=== PATIENT | male | born 1960 | race Caucasian/White ===

== ENCOUNTER 2018-02-16 17:20 | Inpatient (IN) ==
[2018-02-16] MEDS ORDERED: *HR* Heparin 5,000 UNIT/ML VIAL ONE (17:25)
[2018-02-16] MEDS ORDERED: *HR* Ticagrelor 90 MG TABLET ONE (17:25)
[2018-02-16] MEDS ORDERED: *HR* Heparin 5,000 UNIT/ML VIAL IVP PRN ×2 (17:26)
[2018-02-16] MEDS ORDERED: Aspirin 81 MG TAB.CHEW ONE (17:26)
[2018-02-16] MEDS ORDERED: *HR* Heparin 5,000 UNIT/ML VIAL IVP ONE (17:26)
[2018-02-16] MEDS ORDERED: 0.9 % Sodium Chloride 1,000 ML IVC ONE (17:26)
[2018-02-16] MEDS ORDERED: *HR* Ticagrelor 90 MG TABLET PO ONE (17:26)
[2018-02-16] MEDS ORDERED: 0.9 % Sodium Chloride 1,000 ML ONE ×2 (17:26→17:31)
[2018-02-16] MEDS ORDERED: Heparin 25,000 UNIT/500 ML D5W 25,000 UNIT/500 ML BAG IVC SCH (17:30)
[2018-02-16] MEDS ORDERED: Heparin 1,000 UNITS/500 mL 500 ML ONE ×2 (17:31→19:12)
[2018-02-16] MEDS ORDERED: ISOVUE-370 200 ML INFUS..BTL IV ONE ×2 (17:31→19:41)
[2018-02-16] MEDS ORDERED: *HR* Heparin 10,000 UNIT/10 ML VIAL ONE (17:31)
[2018-02-16] MEDS ORDERED: Nitroglycerin 1,000 MCG/10 ML VIAL IV ONE (17:31)
[2018-02-16 17:40] LABS: Basophils # 0.2 K/mcL (0.0-0.2); Basophils % 0.9 %; Eosinophils # 0.4 K/mcL (0.0-0.6); Eosinophils % 1.7 %; Hematocrit 46.3 % (37.5-50.1); Hemoglobin 15.9 g/dL (12.9-16.9); Immature Granulocytes % 4.4 % (0-4); Immature Platelets 8.4 % (1.1-6.1); Lymphocytes # 9.2 K/mcL (0.6-4.6); Lymphocytes % 43.9 %; Mean Corpuscular HGB Conc 34.3 g/dL (31.6-35.5); Mean Corpuscular Hemoglobin 31.5 pg (28.0-33.3); Mean Corpuscular Volume 91.7 fL (83.0-100.0); Mean Platelet Volume 12.1 fL (9.4-12.4); Monocytes # 0.8 K/mcL (0.0-1.3); Neutrophils # 9.4 K/mcL (1.6-8.9); Nucleated Red Blood Cells 0.1 /100 WBC (0); Platelet Count 168 K/mcL (140-400); Red Blood Count 5.05 M/mcL (4.19-5.50); Red Cell Distribution Width 13.3 % (11.5-14.5); Segmented Neutrophils % 45.1 %
--- NOTE | 2018-02-16 17:43 | Emergency Department Note ---
Disposition Clinical Impression: STEMI (ST elevation myocardial infarction) Qualifiers: Involved coronary artery: LAD coronary artery Qualified Code(s): I21.02 - ST elevation (STEMI) myocardial infarction involving left anterior descending coronary artery Disposition: Admitted As Inpatient Condition: Critical Forms: ED Satisfaction Letter Time of Disposition: 17:50 Chest Pain HPI - General Chief Complaint: ED Chest Pain Stated Complaint: unresponsive Time Seen by Provider: 02/16/18 17:26 Source: EMS Mode of arrival: EMS Limitations: no limitations Vital Signs Reviewed: Yes Nursing Notes Reviewed: Yes - History of Present Illness HPI Narrative: Patient is a 57 yo male who presents today due to being found unresponsive at roadside. 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 He had witnessed arrest while at work prior to arrival, approx 1 hour ago. He had been complaining of not feeling well all day and then was witnessed collapsing. CPR was performed by bystanders until EMS arrived. EMS states that they did CPR for a total of around 45 minutes. They had a shockable rhythm of V. fib on the monitor twice, the patient was shocked at 360 J twice. Upon the second shock, the patient had return of spontaneous circulation. No epinephrine, bicarbonate, or any other ACLS medications were given. The patient was bagged for airway until arrival to ER, no tube was placed. Upon arrival to the ER, patient was oriented to person but not place or time, he was complaining of left-sided chest pain, would follow commands of car shakeout operator strength testing but would not answer any other review of system questions such as shortness of breath, nausea, vomiting, fevers, abdominal pain; would not follow and other commands. He has no family or other persons with him. No known medical history on the patient. - Related Data Allergies Allergy/AdvReac Type Severity Reaction Status Date / Time No Known Allergies Allergy Verified 02/16/18 17:47 Limitations: ROS unobtainable due to patients medical condition Physical Exam - General Limitations: altered mental status General appearance: other (listless) - Head Head exam: atraumatic, normocephalic, normal inspection - Eye Eye exam: Present: normal appearance, PERRL, EOMI - ENT ENT exam: normal exam, normal oropharynx, mucous membranes moist - Neck Neck exam: Present: normal inspection, full ROM, trachea midline - Chest Chest inspection: Present: normal inspection, symmetric chest wall rise, other ( partial thickness skin abrasion of midline/left chest approx 8cm x5cm; presumed from CPR/defib. ) - Respiratory Respiratory exam: Present: normal lung sounds bilaterally - Cardiovascular Cardiovascular exam: Present: regular rate, normal rhythm, normal heart sounds - Abdominal Exam Abdominal exam: Present: soft, Non-Tender. Absent: tenderness, distention, guarding, rebound, rigidity - Extremities Exam Extremities exam: Present: normal inspection, full ROM. Absent: tenderness, pedal edema - Neurological Exam Neurological exam: Present: alert, other (oriented to person only but not time or place) - Expanded Neurological Exam Patient oriented to: Present: person Speech: Present: fluid speech Cranial nerves: EOM function (II, III, IV, ): Normal, facial palsy (VII): Normal Motor strength - LUE: 5/5 Motor strength - RUE: 5/5 Coma Scale Eye Opening: To Voice Coma Scale Motor Response: Obeys Commands Coma Scale Verbal Response: Confused Coma Scale Total: 13 - Psychiatric Psychiatric exam: Present: other - Skin Skin exam: Present: warm, dry Course Course Narrative: Vitals currently stable. Blood pressure systolic 120-140s. Heart rate in the 80s to 90s. Once onto the bed, patient had an EKG that showed ST elevation in leads 2, 3, aVF with reciprocal ST depression in lead 1, V1 through V5. STEMI alert called at 17:25. I talked with tungsten refiner on-call, Dr. Garcia; discussed presentation, vitals, EKG. He agreed to come in for heart catheter. We discussed giving the patient aspirin, Prilosec, heparin. He is agreeable with this plan. Bedside chest x-ray showed no widened mediastinum, bilateral upper extremity blood pressures were the same, 120s over 80s. Patient taken from room to [facility] at 17:52, stable vitals upon leaving room. Chest Pain - MDM Narrative Medical decision making narrative: Vitals currently stable. Blood pressure systolic 120-140s. Heart rate in the 80s to 90s. Once onto the bed, patient had an EKG that showed ST elevation in leads 2, 3, aVF with reciprocal ST depression in lead 1, V1 through V5. STEMI alert called at 17:25. I talked with tungsten refiner on-call, Dr. Garcia; discussed presentation, vitals, EKG. He agreed to come in for heart catheter. We discussed giving the patient aspirin, Prilosec, heparin. He is agreeable with this plan. Bedside chest x-ray showed no widened mediastinum, bilateral upper extremity blood pressures were the same, 120s over 80s. Patient taken from room to [facility] at 17:52, stable vitals upon leaving room. - Medical Records Medical records reviewed: Yes I reviewed the patient's medical records. - Lab Data Lab results reviewed: Yes I reviewed the patient's lab results. - Radiology Data Radiology results reviewed: Yes I reviewed the patient's radiology results. Chest X-Ray 02/16/18 17:28 IMPRESSION: Asymmetric right-sided opacity, greatest at the right upper lobe, suspicious for pneumonia. Asymmetric edema could be considered in the appropriate clinical setting. Follow-up to complete resolution is recommended. D/ / Adams Spivey MD / Adams Spivey MD Interpreting Provider: Adams Spivey MD - EKG Data EKG attestation: Yes I reviewed and interpreted this EKG. EKG results narrative: 02/16/2018 at 17:25. Sinus tach/possible fast A. fib. Rate was 112. QRS 110. QTC 395. Right axis deviation. ST elevation in lead 2, 3, aVF, reciprocal ST depression in lead 1, V1 through V5. INFERIOR STEMI S.B.A.R. - S.B.A.R. Situation: Demographics, MOA Background: Presenting Complaint, Relevant PMH, Meds, & Allergies Assessment: Vital Signs, Course and respsone to treatment, Exam Concerns, Pertinant Lab Results, Outstanding Labs Recommendation: Barrier(s) to disposition, Recommendation based on pending studies, treatments, or consults S.B.A.R. Report Given to: Dr. Garcia
[2018-02-16 17:50] LABS: INR 1.1; Prothrombin Time 12.1 Seconds (9.4-12.1)
[2018-02-16 17:53] LABS: Activated Partial Thrombo Time 35.2 Seconds (26.0-36.0)
[2018-02-16 17:58] LABS: BUN/Creatinine Ratio 12 (6-26); Blood Urea Nitrogen 16 mg/dL (6-20); Calcium 8.1 mg/dL (8.6-10.3); Carbon Dioxide 14 mEq/L (23-29); Chloride 107 mEq/L (98-107); Glucose 310 mg/dL (70-105); Magnesium 2.2 mg/dL (1.6-2.6); Osmolality,Calculated 301 (280-300); Potassium 3.7 mEq/L (3.5-5.1); Sodium 139 mEq/L (136-145); eGFR For African Americans > 60 (> 60); eGFR For Non-African Americans 55 (> 60)
--- NOTE | 2018-02-16 17:58 | Emergency Department Note ---
Disposition Clinical Impression: ST elevation myocardial infarction (STEMI) Qualifiers: Involved coronary artery: LAD coronary artery Qualified Code(s): I21.02 - ST elevation (STEMI) myocardial infarction involving left anterior descending coronary artery Disposition: Admitted As Inpatient Condition: Serious Forms: ED Satisfaction Letter General Adult HPI - General Chief complaint: ED Chest Pain Stated complaint: unresponsive Time Seen by Provider: 02/16/18 17:26 Source: EMS Mode of arrival: EMS Limitations: altered mental status - History of Present Illness Pain Scale: 0 - Related Data Allergies Allergy/AdvReac Type Severity Reaction Status Date / Time No Known Allergies Allergy Verified 02/16/18 17:47 Past Medical History - Past Medical History Medical history: Reports: no medical history Psychiatric history: Reports: no psych history - Social History Smoking Status: Unknown if ever smoked Physical Exam - General Limitations: altered mental status General appearance: other (listless) Course - Reevaluation(s) Reevaluation #1: Attestation note I examined this patient and my medical decision-making was reviewed with the emergency medicine resident. I agree with the documented findings, disposition and treatment plan as described except to the extent set forth below. Patient seen with emergency medicine resident Dr. DENISHA HERNANDEZ, Please see a copy of his note for details of the H&P, ED evaluation, management and disposition. I have independently evaluated the patient and confirmed appropriate portions of the history and physical exam. Briefly: 57-year-old male brought in by EMS status post witnessed cardiac arrest with V. fib responding to 1 shock patient a perfusing rhythm and was being bagged. Patient by report had a stress test in and cast her last week was supposedly okay. By the time patient arrived he was spontaneously breathing and he was conscious. EKG showed clear ST elevation in the anterior inferior leads with reciprocal changes in the lateral leads. Stimulator was called immediately I had a notify the catheter lab and my resident discussed the case with the courtroom clerk. We have provided 30 minutes critical care service this patient. Patient transported in critical condition to the catheter lab. Time: 17:54 Vital Signs Temperature 96.6 F L 02/16/18 17:35 Pulse Rate 99 02/16/18 17:35 Respiratory Rate 22 02/16/18 17:35 Blood Pressure 144/79 02/16/18 17:35 O2 Sat by Pulse Oximetry 91 02/16/18 17:35 Temperature 96.6 F L 02/16/18 17:35 Pulse Rate 99 02/16/18 17:35 Respiratory Rate 22 02/16/18 17:35 Blood Pressure 144/79 02/16/18 17:35 O2 Sat by Pulse Oximetry 91 02/16/18 17:35 Oxygen Delivery Oxygen Delivery Non Rebreather Mask Medical Decision Making - Lab Data Result diagrams: 02/16/18 17:25 Lab Results 02/16/18 02/16/18 Range/Units 17:25 17:25 WBC 20.9 H (4.3-11.1) K/mcL RBC 5.05 (4.19-5.50) M/mcL Hgb 15.9 (12.9-16.9) g/dL Hct 46.3 (37.5-50.1) % MCV 91.7 (83.0-100.0) fL MCH 31.5 (28.0-33.3) pg MCHC 34.3 (31.6-35.5) g/dL RDW 13.3 (11.5-14.5) % Plt Count 168 (140-400) K/mcL MPV 12.1 (9.4-12.4) fL Nucleated RBCs/100 WBC 0.1 H (0) /100 WBC Immature Plt Fraction 8.4 H (1.1-6.1) % PT 12.1 (9.4-12.1) Seconds INR 1.1 APTT 35.2 (26.0-36.0) Seconds
[2018-02-16] MEDS ORDERED: Tirofiban 5 MG/100 mL 5 MG/100 ML VIAL IV ONE ×2 (18:05→20:02)
[2018-02-16] MEDS ORDERED: Amiodarone Premix 360 MG/200 ML BAG IVC ONE (18:12)
[2018-02-16] MEDS ORDERED: Amiodarone Premix 150 MG/100 ML BAG IVPB ONE (18:12)
[2018-02-16 18:18] LABS: Platelet Estimate Normal (Normal); Reactive Lymphocytes Present (Not Present)
[2018-02-16] MEDS ORDERED: *HR* Atropine Sulfate 1 MG/10 ML SYRINGE ONE (20:17)
[2018-02-16] MEDS ORDERED: Tirofiban 12.5 MG/250ML 12.5 MG/250 ML BAG IVC SCH (20:30)
--- NOTE | 2018-02-16 20:30 | Cardiology History & Physical ---
Date of Encounter: 02/16/18 Time of Encounter: 20:28 Assessment and Plan (1) ST elevation myocardial infarction (STEMI) Current Visit: Yes Status: Acute The assessment and plan as outlined above was discussed with the patient and/or family members who expressed understanding and agreement. All questions were answered. ST elevation inferior AR s/p CVE x 2 and 45 mins of CPR, emergent LHC, R/B/A d/ w patient and agreed to proceed. Qualifiers: Involved coronary artery: right coronary artery Qualified Code(s): I21.11 - ST elevation (STEMI) myocardial infarction involving right coronary artery History of Present Illness Chief complaint: SCD HPI: Mr. Carpio is a 57 year old male presents with Inferior ST elevations, s/p Sudden cardiac with out of hospital resucitation, confused unablt to provide history. S/P CPR x 45 mins and CVE x 2 en route. Significant bruising to the chest wall evident Past Med Surg Social Fam HX - Past Medical History Medical history: no medical history Psychiatric history: no psych history - Social History Smoking Status: Unknown if ever smoked Medications and Allergies 3 Allergy/AdvReac Type Severity Reaction Status Date / Time No Known Allergies Allergy Verified 02/16/18 17:47 All Systems Review: The remainder of the systems were reviewed and are negative Physical Examination General: Conversant, No Apparent Distress HEENT: Atraumatic, Normocephaly, Mucus Membranes Moist Neck: No JVD, Normal carotid pulses Cardiac: Reg Rate and Rhythm, Normal S1 and S2, No Murmur Lungs: Normal Breath Sounds, No Wheeze, Rales, Rhonchi Neuro: Alert and responsive, No focal deficits noted Abdomen: Soft, Non-Tender Skin: No rashes noted on visualized skin Musculoskeletal: No Chest Wall Tenderness Extremities: No Clubbing, No Cyanosis, No Edema, Normal Pulses Results 02/16/18 17:25 02/16/18 17:25 - VTE Reasons for not Prescribing Prophylaxis: Not indicated-Anticoagulated or INR therapeutic
--- NOTE | 2018-02-16 20:52 | Invasive Diagnostic Lab Proc ---
Name: Nicolas Carpio Date of Study: 02/16/2018 Date: 1960 Ht: 72.0in Medical Record#: [id number] Age: 57 Wt: 199.96lb Gender: Male BSA: 2.13 Order #: [id number] BMI: 27.08 Physicians Procedure Physician: Emiliana Garcia MD Referring MD: Referring MD: Staff Name Position Time In RamiroAngelo louis RN Monitor 05:59 PM Jo Wright RN Virtual Recruiter 05:59 PM Jaquelin Beltre RN Virtual Recruiter 05:59 PM Annmarie Blancas RT (R) Scrub 05:59 PM Indications Indication STEMI Procedures Performed Procedure PRQ CARD REVASC IN 1 VSL L HRT ARTERY/VENTRICLE ANGIO Pre-Procedure Checklist Informed consent is complete signed and on chart. ID band is on and ID verified with patient. Pt not NPO for procedure and MD aware. The procedure was described for the patient and questions were answered. ECG is on chart. Rhythm: NSR Plan of Care Patient will tolerate the procedure without complications. Adequate level of comfort will be maintained. Hemodynamics will remain stable Patient will recover from procedure without complications. Respiratory function will be maintained. Cardiac rhythm will remain stable. Patient temperature will be maintained. Patient and/or family have verbalized understanding of the procedure. Patient Education Intravenous Access Time IV Size Location DC'd Fluid/Drip Rate Units RN 18g 1 1/4" Patent On Arrival Lt AntecubJo Martínez RN 16 Rt Antecubital Jo Wright RN Allergies No Known Allergies Vital Signs Time BP (mmHg) HR (bpm) O2 Sat. RR (bpm) LOC 06:01 PM / % 4 = Oriented but drowsy 06:01 PM / % 4 = Oriented but drowsy 06:16 PM / % 4 = Oriented but drowsy 06:31 PM / % 4 = Oriented but drowsy 06:46 PM / % 4 = Oriented but drowsy 07:01 PM / % 4 = Oriented but drowsy 07:17 PM / % 4 = Oriented but drowsy 07:32 PM / % 4 = Oriented but drowsy 07:47 PM / % 4 = Oriented but drowsy 08:02 PM / % 4 = Oriented but drowsy 08:17 PM / % 4 = Oriented but drowsy 05:58 PM 127 / 71 73 88 % 06:03 PM 118 / 74 76 92 % 06:08 PM 125 / 71 82 92 % 06:13 PM 119 / 83 103 93 % 06:15 PM 112 / 84 133 95 % 06:20 PM 126 / 79 118 95 % 06:25 PM 116 / 89 117 95 % 06:30 PM 128 / 75 104 93 % 06:35 PM 118 / 70 80 95 % 06:40 PM 116 / 82 85 93 % 06:45 PM 129 / 74 76 94 % 06:50 PM 121 / 73 78 95 % 06:55 PM 120 / 82 78 93 % 07:00 PM 116 / 79 76 94 % 07:05 PM 123 / 80 76 94 % 07:10 PM 120 / 79 76 95 % 07:15 PM 122 / 84 75 93 % 08:10 PM 124 / 72 76 92 % 08:15 PM 126 / 81 77 93 % 08:20 PM 121 / 79 77 93 % 08:25 PM 110 / 79 71 92 % 08:30 PM 118 / 82 73 92 % 08:35 PM 111 / 86 71 92 % 07:20 PM 121 / 86 76 94 % 07:25 PM 123 / 80 71 93 % 07:30 PM 120 / 83 73 92 % 07:35 PM 121 / 82 74 92 % 07:40 PM 123 / 82 75 93 % 07:45 PM 127 / 83 74 91 % 07:50 PM 125 / 86 75 92 % 07:55 PM 120 / 82 74 91 % 08:00 PM 125 / 81 72 91 % 08:05 PM 118 / 69 73 91 % Procedural Medications Time Medication Dose Units Method Given By 06:00 PM Oxygen 10 L/min Oxy Mask Jo Wright RN 06:01 PM Lidocaine 2% 10 ml Subcutaneous Emiliana Garcia MD 06:06 PM Heparin 1000 units Intravenous AdrianaJo reis RN 06:07 PM Aggrastat Bolus: 46 ml Intravenous Cloud CreekJo reis RN 06:07 PM Aggrastat 5mg/100ml 16.5 ml Intravenous [place] CreekJo reis RN 06:37 PM Oxygen 6 L/min Oxy Mask [place] CreekJo reis RN 07:15 PM Heparin 1000 units Intravenous AdrianaJo RN 07:27 PM Oxygen 3 L/min Oxy Mask AdrianaJo reis RN 08:02 PM Nitroglycerin 150 mcg Intracoronary Ale Garcia MD 08:04 PM Nitroglycerin 100 mcg Intracoronary AntonioAle pantoja MD 08:04 PM Heparin 2000 units Intravenous Jo Wright RN 08:05 PM Nitroglycerin 200 mcg Intracoronary Ale Garcia MD 08:08 PM Heparin 2000 units Intravenous Jo Wright RN ASA Classification: Emergent Procedure: ASA score is assumed Pattie Score Preprocedure Postprocedure Activity 2- Moves 4 extremities sustained head lift Activity 2- Moves 4 extremities sustained head lift Circulation 2- SBP +/= 20 points of pre-anesthetic level Circulation 2- SBP +/= 20 points of pre-anesthetic level Consciousness 1- Responds to verbal stimuli drowsy Consciousness 1- Responds to verbal stimuli drowsy O2 Saturation 2- Able to maintain O2 satruation of 92% on room air O2 Saturation 2- Able to maintain O2 satruation of 92% on room air Respiratory 2- Able to deep breathe and cough well Respiratory 2- Able to deep breathe and cough well Total Score 9 Total Score 9 Contrast Agent: Isovue Diagnostic Contrast: 398 ml Total Contrast: 398 ml Fluoro Dose: 5470 mGy Activated Clotting Time Time Seconds to Clot 06:35 PM 304 07:15 PM 224 08:04 PM 156 Procedure Log Time Note Enter By 05:55 PM CathStat 05:57 PM Vitals capture started with the following parameters, Patient=Adult, Interval=5 min, Initial Ayahbajy=755 mmHg, Deflation Rate=5 mmHg, Cuff placed on Right Arm 05:58 PM HR=73 bpm, HUQY=511/71 mmhg, SpO2=88.0 %, Comment=nsr 05:59 PM Pt arrived to vat house laborer 2 at 17:59 jcallan 05:59 PM Angelo Rubio RN Position: Monitor Time in: 17:59 [email or web address] 05:59 PM Jo Wright RN Position: Virtual Recruiter Time in: 17:59 [email or web address] 05:59 PM Jaquelin Beltre RN Position: Virtual Recruiter Time in: 17:59 jcallan 06:00 PM Annmarie Blancas (R) Position: Scrub Time in: 17:59 jcallan 06:00 PM Patient charges- Angio tray pack, Navilyst 3mm J, Pulse Oximetry and ACIST tubing and [facility] PM Hair removed from procedure site in procedure lab using clippers. Bilateral groin prepped with Chloraprep by Annmarie Blancas (R), then patient was draped. Skin intact. [facility] 06:00 PM Physician arrived 18:00 [facility] 06:00 PM Reza and godwin completed [facility] :00 PM Sign in performed according to hospital policy. [facility] PM Time: 18:00 Oxygen on at 10 L/min per Oxy Mask by Jo Wright RN [facility] 06[facility]01 PM Time: 18:00 Patient comfortable and pain free: Yes [facility] : PM Time: 18:01LOC: 4 = [facility]ed but drowsy [facility] 06: PM Clinical Presentation: STEMI or equivalent [facility] : PM Time out performed according to hospital policy [facility] :02 PM Time: 18:01 10 ml Lidocaine 2% to right groin Subcutaneous Given by Emiliana Garcia MD [facility] 06[facility]02 PM Micro-Introducer Kit utilized for sheath placement [facility] 06:03 PM Access obtained by percutaneous puncture. 6Fr 10cm Terumo Hegins sheath placed in right Femoral artery. [id number] [facility] 06:03 PM HR=76 bpm, CVJW=779/74 mmhg, SpO2=92.0 %, Comment=nsr 06:03 PM 6Fr JR 4 Cordis guide catheter was used to cannulate the PCI vessel successfully. reused? No [facility] 06:03 PM .014 [employer] [place] 190cm guide wire across target lesion- successful. reused? No [facility] 06:04 PM Inflation device was opened. [facility] 06:04 PM 2.0 mm x 12 mm Emerge Monorail balloon across target lesion- successful. reused? No jcallan 06:04 PM Recorded Pressure: Ao, HR=74, Condition=Condition 1 (Aorta) Ao 113/83/97 06:04 PM RCA angiography performed in multiple views. [facility] 06:05 PM PCI Status Emergency [facility] 06:05 PM PCI Indication: Immediate PCI for STEMI [facility] 06:06 PM Time: 18:06 Heparin 1000 units Intravenous Given by Jo Wright RN [facility] 06:07 PM Recorded Pressure: Ao, HR=80, Condition=Condition 1 (Aorta) Ao 108/82/95 06:07 PM Time: 18:07 Aggrastat Bolus: 46 ml Intravenous Given by Jo Wright RN Azul pump [email or web address] 06:08 PM Time: 18:07 Aggrastat 5mg/100ml 16.5 ml Intravenous Given by Jo Wright RN Azul pump [email or web address] 06:08 PM HR=82 bpm, HUMH=714/71 mmhg, SpO2=92.0 %, Comment=nsr 06:08 PM Lesion found in Proximal RCA. Pre Stenosis: 100 Pre IRVIN Flow: 0: No Flow/No perfusion [email or web address] 06:08 PM Right Coronary, Right Posterior Descending Arteries with Right Posterolateral and Acute Marginal branches with 100 % stenosis. If graft is supplying this area, 0 % stenosis [email or web address] 06:09 PM Balloon inflated @ 6 linette for 6 seconds [email or web address] 06:11 PM Balloon catheter removed intact. [email or web address] 06:11 PM Recorded Pressure: Ao, DZ=443, Condition=Condition 1 (Aorta) Ao 99/83/91 06:11 PM Guide wire removed intact. [email or web address] 06:12 PM .014 High-Torque Regrader 50 190cm guide wire across target lesion- successful. reused? No jcallihan 06:13 PM SS=946 bpm, HNVC=232/83 mmhg, SpO2=93.0 %, Comment=nsr 06:13 PM Recorded Pressure: Ao, HR=97, Condition=Condition 1 (Aorta) Ao 102/78/90 06:14 PM Vitals capture stopped. 06:14 PM Vitals capture started with the following parameters, Patient=Adult, Interval=5 min, Initial Owwihcld=990 mmHg, Deflation Rate=5 mmHg, Cuff placed on Right Arm 06:15 PM Re-shaping wire. [email or web address] 06:15 PM KZ=708 bpm, VVEG=387/84 mmhg, SpO2=95.0 % 06:16 PM Time: 18:01LOC: 4 = Oriented but drowsy [email or web address] 06:16 PM Time: 18:01 Patient comfortable and pain free: Yes [email or web address] 06:17 PM Coronary Dominance: right jcallihan 06:17 PM Wire removed jcallihan 06:18 PM Re-inserting BMW wire. jcallihan 06:20 PM RX=952 bpm, XGWR=730/79 mmhg, SpO2=95.0 % 06:22 PM Guide wire removed intact. [email or web address] 06:23 PM .014 Whis[place] 190cm guide wire across target lesion- successful. reused? No jcallihan 06:25 PM ND=981 bpm, OMLY=005/89 mmhg, SpO2=95.0 % 06:28 PM Guide wire removed intact. [email or web address] 06:30 PM Recorded Pressure: Ao, MT=570, Condition=Condition 1 (Aorta) Ao 106/87/96 06:30 PM RC=337 bpm, EKYA=024/75 mmhg, SpO2=93.0 %, Comment=nsr 06:31 PM Time: 18:16 Patient comfortable and pain free: Yes [email or web address] 06:31 PM Time: 18:16LOC: 4 = Oriented but drowsy [email or web address] 06:31 PM .014 BMW [place] 190cm guide wire across target lesion- successful. reused? No jcallihan 06:31 PM New BMW inserted [email or web address] 06:34 PM Recorded Pressure: Ao, HR=78, Condition=Condition 1 (Aorta) Ao 102/68/86 06:35 PM At 18:35 the ACT was 304 seconds. [email or web address] 06:35 PM HR=80 bpm, BBEF=132/70 mmhg, SpO2=95.0 %, Comment=nsr 06:35 PM Guide wire removed intact. [email or web address] 06:37 PM .014 Hi-Torque Regrader 50 190cm guide wire across target lesion- successful. reused? No jcallihan 06:37 PM Time: 18:37 Oxygen on at 6 L/min per Oxy Mask by Jo Wright RN [email or web address] 06:38 PM Recorded Pressure: Ao, HR=84, Condition=Condition 1 (Aorta) Ao 98/71/85 06:40 PM HR=85 bpm, KIYR=694/82 mmhg, SpO2=93.0 %, Comment=nsr 06:42 PM Guide wire removed intact. jcallihan 06:43 PM .014 Whis[place] 190cm guide wire across target lesion- successful. reused? No jcallihan 06:45 PM HR=76 bpm, RBBZ=752/74 mmhg, SpO2=94.0 %, Comment=nsr 06:46 PM Time: 18:31LOC: 4 = Oriented but drowsy jcallihan 06:46 PM Time: 18:31 Patient comfortable and pain free: Yes [email or web address] 06:47 PM Balloon re-inserted. [email or web address] 06:48 PM Recorded Pressure: Ao, HR=78, Condition=Condition 1 (Aorta) Ao 102/81/92 06:50 PM HR=78 bpm, DZQZ=121/73 mmhg, SpO2=95.0 % 06:50 PM Conversation between Interventionalist and CT Surgeon. [email or web address] 06:[address] Coronado aware that patient has had Brilinta and is an Acute IN. [email or web address] 06:55 PM HR=78 bpm, IEPB=042/82 mmhg, SpO2=93.0 %, Comment=nsr 06:58 PM Balloon catheter removed intact. [email or web address] 06:59 PM .014 [place] 190cm guide wire across target lesion- successful. reused? No jcallihan 07:00 PM HR=76 bpm, HYMZ=188/79 mmhg, SpO2=94.0 % 07:01 PM Time: 18:46 Patient comfortable and pain free: Yes [email or web address] 07:01 PM Time: 18:46LOC: 4 = Oriented but drowsy [email or web address] 07:05 PM HR=76 bpm, PGTI=579/80 mmhg, SpO2=94.0 %, Comment=nsr 07:09 PM Recorded Pressure: Ao, HR=80, Condition=Condition 1 (Aorta) Ao 116/81/98 07:10 PM HR=76 bpm, ENMI=364/79 mmhg, SpO2=95.0 %, Comment=nsr 07:11 PM Guide wire removed intact. [email or web address] 07:11 PM Conversation between Interventionalist and CT Surgeon. jcallihan 07:11 PM .014 ChoICE PT Floppy 300cm guide wire across target lesion- successful. reused? No [email or web address] 07:15 PM HR=75 bpm, FBJK=442/84 mmhg, SpO2=93.0 %, Comment=nsr 07:15 PM Time: 19:15 Heparin 1000 units Intravenous Given by Jo Wright RN [email or web address] 07:15 PM Recorded Pressure: Ao, HR=74, Condition=Condition 1 (Aorta) Ao 116/83/99 07:16 PM At 19:15 the ACT was 224 seconds. [email or web address] 07:16 PM Time: 19:01 Patient comfortable and pain free: Yes [email or web address] 07:17 PM Time: 19:01LOC: 4 = Oriented but drowsy jcallihan 07:18 PM 1.2 mm x 15 mm Emerge OTW balloon across target lesion- successful. reused? No jcallihan 07:20 PM HR=76 bpm, LUZC=934/86 mmhg, SpO2=94.0 %, Comment=nsr 07:21 PM Pt states that he has worsening chest pain upon breathing, rates it a 5/10 [email or web address] 07:25 PM HR=71 bpm, QZKG=864/80 mmhg, SpO2=93.0 %, Comment=nsr 07:28 PM Time: 19:27 Oxygen on at 3 L/min per Oxy Mask by Jo Wright RN jcallihan 07:30 PM HR=73 bpm, JIXD=311/83 mmhg, SpO2=92.0 %, Comment=nsr 07:31 PM Time: 19:16 Patient comfortable and pain free: Yes [email or web address] 07:32 PM Time: 19:17LOC: 4 = Oriented but drowsy jcallihan 07:35 PM HR=74 bpm, EZEI=868/82 mmhg, SpO2=92.0 %, Comment=nsr 07:35 PM Balloon catheter removed intact. [email or web address] 07:40 PM 2.0 mm x 12 mm Emerge Monorail balloon across target lesion- successful. reused? No jcallihan 07:40 PM HR=75 bpm, MWTR=826/82 mmhg, SpO2=93.0 %, Comment=nsr 07:42 PM Balloon inflated @ 6 linette for 7 seconds [email or web address] 07:42 PM Balloon inflated @ 7 linette for 5 seconds [email or web address] 07:42 PM Balloon catheter removed intact. [email or web address] 07:45 PM HR=74 bpm, ZHGJ=173/83 mmhg, SpO2=91.0 %, Comment=nsr 07:45 PM 3.5mm x 28mm Synergy drug-eluting stent across target lesion- successful Lot #[id number] [email or web address] 07:47 PM Time: 19:32LOC: 4 = Oriented but drowsy jcallihan 07:47 PM Time: 19:31 Patient comfortable and pain free: Yes [email or web address] 07:47 PM Recorded Pressure: Ao, HR=75, Condition=Condition 1 (Aorta) Ao 115/80/97 07:48 PM Stent delivery system removed intact, undeployed [email or web address] 07:48 PM Lesion found in Mid RCA. Pre Stenosis: 99 Pre IRVIN Flow: 3: Complete and Brisk Flow/Perfusion jcallihan 07:50 PM HR=75 bpm, BTHD=217/86 mmhg, SpO2=92.0 %, Comment=nsr 07:50 PM 2.5 mm x 12 mm Emerge Monorail balloon across target lesion- successful. reused? No jcallihan 07:50 PM Balloon inflated @ 7 linette for 16 seconds [email or web address] 07:51 PM Balloon catheter removed intact. jcallihan 07:52 PM Stent re-inserted. jcallihan 07:55 PM HR=74 bpm, NCKU=400/82 mmhg, SpO2=91.0 %, Comment=nsr 07:55 PM 6Fr Guidezilla advanced jcallihan 08:00 PM HR=72 bpm, BNHI=163/81 mmhg, SpO2=91.0 %, Comment=nsr 08:00 PM Stent deployed @ 11 linette for 12 seconds [email or web address] 08:00 PM Stent balloon reinflated @ 16 linette for 13 seconds [email or web address] 08:02 PM Time: 19:47LOC: 4 = Oriented but drowsy jcallihan 08:02 PM Time: 19:47 Patient comfortable and pain free: Yes [email or web address] 08:03 PM Time: 20:02 Nitroglycerin 150 mcg Intracoronary Given by Ale Garcia MD 08:03 PM Guidezilla removed [email or web address] 08:03 PM Stent delivery system removed intact. [email or web address] 08:04 PM Time: 20:04 Nitroglycerin 100 mcg Intracoronary Given by Ale Garcia MD 08:04 PM Recorded Pressure: Ao, HR=73, Condition=Condition 1 (Aorta) Ao 106/77/90 08:04 PM At 20:04 the ACT was 156 seconds. [email or web address] 08:05 PM Time: 20:04 Heparin 2000 units Intravenous Given by Jo Wright RN [email or web address] 08:05 PM Time: 20:05 Nitroglycerin 200 mcg Intracoronary Given by Ale Garcia MD 08:05 PM HR=73 bpm, ABAL=667/69 mmhg, SpO2=91.0 %, Comment=nsr 08:06 PM Guide wire removed intact. [email or web address] 08:08 PM Time: 20:08 Heparin 2000 units Intravenous Given by Jo Wright RN [email or web address] 08:10 PM Guide catheter removed intact. [email or web address] 08:10 PM 5Fr FL 4 catheter inserted over the wire [facility] [email or web address] 08:10 PM LCA angiography performed in multiple views. [email or web address] 08:10 PM HR=76 bpm, APDF=023/72 mmhg, SpO2=92.0 %, Comment=nsr 08:10 PM Catheter removed jcallihan 08:11 PM Recorded Pressure: LV, HR=78, Condition=Condition 1 (Left Ventricle) LV 112/18/19 08:11 PM Recorded Pressure: LV, HR=81, Condition=Condition 1 (Left Ventricle) LV 114/17/17 08:12 PM 5Fr Pigtail catheter inserted over the wire [facility] [email or web address] 08:12 PM Catheter selectively placed in left ventricle jcallihan 08:12 PM Recorded Pressure: LV, Ao, HR=80, Condition=Condition 1 (Left Ventricle) LV 99/29/30, (Aorta) Ao 100/77/90 08:13 PM Bolus angiogram of left Ventricle complete: 10 ml/sec for a total of 20 mls [email or web address] 08:13 PM Catheter removed [email or web address] 08:14 PM right groin shot obtained. [email or web address] 08:14 PM Procedure completed at 20:14 [facility] 08[facility]14 PM Did you address IRVIN flow and Dominance? Yes [email or web address] 08:15 PM HR=77 bpm, PJQG=240/81 mmhg, SpO2=93.0 %, Comment=nsr 08:17 PM Time: 20:02LOC: 4 = Oriented but drowsy jcallihan 08:17 PM Sign out completed: Radiation Dose 5470 mGy Fluoro Time: 62.5 Isovue 370 - 200ml contrast 398 ml given by Emiliana Garcia MD. Complications: NoneCardiac Rehab Consult needed: YesConfirmed administered medications: Yes [email or web address] 08:20 PM Time: 20:02 Patient comfortable and pain free: Yes [email or web address] 08:20 PM Isovue 370 - 200ml,3 Bottle(s) used. jcallihan 08:20 PM HR=77 bpm, GDEQ=453/79 mmhg, SpO2=93.0 %, Comment=nsr 08:25 PM HR=71 bpm, ZMFM=139/79 mmhg, SpO2=92.0 %, Comment=nsr 08:27 PM Arterial sheath pulled, Angio-seal closure device used and was Successful [id number] S/N. jcallihan 08:27 PM Estimated Blood Loss: less than 50cc jcallihan 08:27 PM Post ECG NSR jcallihan 08:27 PM Post Blood Pressure 110/79 jcallihan 08:28 PM 20:28 Post Pulses Bilateral DP & PT 2+ jcallihan 08:28 PM 20:28 Post Pulses Bilat Radial 2+ jcallihan 08:28 PM Information taught Cardiac Cath, PCI, and Angioseal jcallihan 08:28 PM Education needs Procedure, Plan of Care, and Responsibilities of Patient in Care jcallihan 08:28 PM Learning barriers :None jcallihan 08:28 PM Education Methods Verbal jcallihan 08:28 PM Education evaluation Able to repeat information jcallihan 08:29 PM Site status No bleeding/hematoma - Rt Groin as reported by Sites, Annmarie RT (R) at 20:28 jcallihan 08:29 PM Opsite applied jcallihan 08:29 PM Plavix, Effient or Brilinta given Yes [email or web address] 08:30 PM Family placed in consult room. [email or web address] 08:30 PM Complications: None jcallihan 08:30 PM Fluoro Time: 62.5 jcallihan 08:30 PM HR=73 bpm, RESL=169/82 mmhg, SpO2=92.0 %, Comment=nsr 08:30 PM Isovue 370 - 200ml contrast 398 ml given by Emiliana Garcia. [email or web address] 08:30 PM Radiation Dose 5470 mGy jcallihan 08:32 PM Report given to Imani ARIZMENDI Pt taken to 2NE Room #1. 20:32 jcallihan 08:32 PM Time: 20:17LOC: 4 = Oriented but drowsy jcallihan 08:32 PM Patient out of room: 20:32 jcallihan 08:35 PM Time: 20:20 Patient comfortable and pain free: Yes [email or web address] 08:35 PM HR=71 bpm, FZXP=067/86 mmhg, SpO2=92.0 % 08:37 PM Lesion found in 1st Diagonal. Pre Stenosis: 80 Pre IRVIN Flow: [email or web address] 08:37 PM Lesion found in Mid Circumflex. Pre Stenosis: 90 Pre IRVIN Flow: [email or web address] 08:38 PM Mid/Distal Left Anterior Descending Coronary Artery and diagonal branches with 80% stenosis. If graft is supplying this area, 0 % stenosis jcallihan 08:38 PM Circumflex, Obtuse Marginal, Left Posterior Descending, and Left Posterolateral Coronary Arteries with 90 % stenosis. If graft is supplying this area, 0 % stenosis [email or web address] Complications Complication None None Hemodynamics Pressures Site Systolic/A Wave Diastolic/V Wave Mean AO 113 83 97 AO 108 82 95 AO 99 83 91 AO 102 78 90 AO 106 87 96 AO 102 68 86 AO 98 71 85 AO 102 81 92 AO 116 81 98 AO 116 83 99 AO 115 80 97 AO 106 77 90 LV 112 18 19 LV 114 17 17 LV 99 29 30 AO 100 77 90 Post Procedure Information Blood Pressure: 110/79 mmHg Rhythm: NSR Post procedural instructions were given Closure Device Time Device Success/Fail 02/16/2018 8:15:00 PM Angio-Seal VIP Successful Site Checks Time Location Status Staff Sheath In? Note 08:28 PM Rt Groin No bleeding/hematoma Sites, Annmarie RT (R) Pulses Time Site Pre-Procedure Post-Procedure Note 8:28:00 PM Bilateral DP & PT 2+ 8:28:00 PM Bilat Radial 2+ Updated by Angelo Rubio RN on 02/16/2018 8:46:46 PM electronically signed on 02/16/2018 8:47:20 PM with status of Final
[2018-02-16] MEDS: *HR* Ticagrelor 90 MG TABLET PO SCH (22:41)
[2018-02-17 03:38] LABS: Basophils % 0.2 %; Hematocrit 42.7 % (37.5-50.1); Hemoglobin 14.9 g/dL (12.9-16.9); Immature Granulocytes % 0.3 % (0-4); Lymphocytes # 1.3 K/mcL (0.6-4.6); Lymphocytes % 8.8 %; Mean Corpuscular HGB Conc 34.9 g/dL (31.6-35.5); Mean Corpuscular Hemoglobin 31.1 pg (28.0-33.3); Mean Corpuscular Volume 89.1 fL (83.0-100.0); Mean Platelet Volume 11.5 fL (9.4-12.4); Neutrophils # 12.1 K/mcL (1.6-8.9); Platelet Count 144 K/mcL (140-400); Red Blood Count 4.79 M/mcL (4.19-5.50); Red Cell Distribution Width 13.6 % (11.5-14.5); Segmented Neutrophils % 83.7 %
[2018-02-17 03:57] LABS: BUN/Creatinine Ratio 16 (6-26); Blood Urea Nitrogen 15 mg/dL (6-20); Calcium 8.7 mg/dL (8.6-10.3); Carbon Dioxide 24 mEq/L (23-29); Chloride 109 mEq/L (98-107); Glucose 126 mg/dL (70-105); Osmolality,Calculated 292 (280-300); Potassium 4.2 mEq/L (3.5-5.1); Sodium 140 mEq/L (136-145); eGFR For African Americans > 60 (> 60); eGFR For Non-African Americans > 60 (> 60)
[2018-02-17] MEDS ORDERED: Aspirin 81 MG TAB.CHEW PO SCH (09:00)
[2018-02-17] MEDS: *HR* Ticagrelor 90 MG TABLET PO SCH ×2 (09:03→20:28)
[2018-02-17] MEDS ORDERED: Acetaminophen 325 MG TABLET PO PRN (10:27)
[2018-02-17] MEDS ORDERED: Metoprolol XL (24 HR) Succ 25 MG TAB.ER.24H PO SCH (10:45)
--- NOTE | 2018-02-17 11:18 | Cardiology Progress Note ---
Date of Encounter: 02/17/18 Time of Encounter: 11:14 Assessment and Plan (1) ST elevation myocardial infarction (STEMI) Current Visit: Yes Status: Acute Presented as inferior STEMI, received 45 minutes of CPR prior to arrival, underwent emergent LHC with MARTÍN to mRCA and PTCA to pRCA. Mild confusion noted, likely secondary to cardiac arrest. Reports chest soreness, reproducible on palpation likely secondary to compressions during CPR. DAPT (ASA and Brilinta) uninterrupted x 1 year. BB and Statin started. TTE pending. Right femoral access site healing well. No bleeding, hematoma or ecchymosis noted. Transfer to regular floor today. Labs and vitals stable. Multiple runs NSVT on tele, longest 18 beats, BB started. Qualifiers: Involved coronary artery: right coronary artery Qualified Code(s): I21.11 - ST elevation (STEMI) myocardial infarction involving right coronary artery (2) NSVT (nonsustained ventricular tachycardia) Current Visit: Yes Status: Acute Multiple runs of NSVT on tele, longest 18 beats. BB started. K and Mag stable. Continue to monitor tele. (3) Confusion Current Visit: Yes Status: Acute Confusion noted, likely secondary to cardiac arrest. Will continue to monitor. Discussion w patient/family: The assessment and plan as outlined above was discussed with the patient and/or family members who expressed understanding and agreement. All questions were answered. Thank you for involving us in the care of your patient. Please call with any questions. I will discuss all the above with Dr. Rudolph and make changes as necessary. Subjective Principal diagnosis: STEMI Interval history: S/P inferior STEMI and s/p Sudden cardiac with out of hospital resuscitation CPR x 45 mins prior to arrival. Emergent LHC yesterday MARTÍN to mRCA and PTCA to pRCA, final report pending. Pt still seems confused today. Report chest soreness s/p compressions. Objective Vital Signs, Last 4 Hours Temp Pulse Resp BP Pulse Ox 02/17/18 08:30 70 19 109/75 94 02/17/18 07:40 98.2 F 02/17/18 07:30 75 19 116/66 95 Vital Signs Temp Pulse Resp BP Pulse Ox 02/17/18 08:30 70 19 109/75 94 02/17/18 07:40 98.2 F 02/17/18 07:30 75 19 116/66 95 05//18 06:00 71 18 112/76 96 02/17/18 05:00 97.9 F 73 18 119/75 96 02/17/18 04:00 71 14 119/86 96 02/17/18 03:00 76 14 113/74 97 02/17/18 02:00 74 16 101/55 95 02/17/18 00:55 97 F L 78 12 122/83 95 02/17/18 00:15 97 F L 02/16/18 23:12 73 18 113/86 98 02/16/18 21:45 75 20 113/82 96 02/16/18 21:30 71 16 115/86 96 02/16/18 21:20 72 02/16/18 21:15 72 20 110/76 97 02/16/18 21:00 74 20 115/78 97 02/16/18 20:55 98.0 F 73 20 118/81 95 02/16/18 18:13 84 20 120/78 93 02/16/18 17:42 77 18 123/94 92 02/16/18 17:35 96.6 F L 99 22 144/79 91 02/16/18 17:33 93 20 122/91 91 02/16/18 17:22 99 18 144/79 91 Intake and Output 02/16/18 02/17/18 02/17/18 23:59 07:59 15:59 Intake Total 661 / 661 Output Total 850 / 850 Balance -189 / -189 Intake: Oral 120 / 120 Other 541 / 541 Output: Urine 850 / 850 Other: Stool Size Copious Stool Consistency soft formed Stool Characteristics Normal for Patient Stool Color Brown # Bowel Movements 1 Weight 90.718 kg 83.4 kg Blood Glucose* 151 Patient Weight 02/17/18 23:59 Weight 83.4 kg General: Conversant, No Apparent Distress HEENT: Atraumatic Neck: No JVD, Normal carotid pulses Cardiac: Reg Rate and Rhythm, Normal S1 and S2, No Murmur Lungs: Normal Breath Sounds, No Wheeze, Rales, Rhonchi Neuro: Alert and responsive, No focal deficits noted Abdomen: Soft, Non-Tender Skin: Other (right femoral access site healing well. No active bleeding. No hematoma or ecchymosis noted.) Musculoskeletal: Other (chest wall tenderness s/p compressions) Extremities: No Clubbing, No Cyanosis, No Edema, Normal Pulses Results 02/17/18 02:59 02/17/18 02:59 Lab Results 02/17/18 02/17/18 02:59 02:59 WBC 14.5 H Hgb 14.9 Hct 42.7 Plt Count 144 Sodium 140 Potassium 4.2 Chloride 109 H Carbon Dioxide 24 BUN 15 Creatinine 0.95 Glucose 126 H Calcium 8.7 - Imaging and Cardiology Echo: pending Cardiac cath: report reviewed - EKG Interpretation EKG results cardiology: personally reviewed, other (24 hr tele AVG HR 73, multiple episodes of NSVT noted, longest run 18 beats) - VTE Reasons for not Prescribing Prophylaxis: Not indicated-Anticoagulated or INR therapeutic Consult Discharge Plan - Plan Referrals: NONE,PCP [Primary Care Provider] -
--- NOTE | 2018-02-17 16:15 | Electrocardiograph Report ---
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
--- NOTE | 2018-02-17 16:21 | Electrocardiograph Report ---
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
[2018-02-17] MEDS ORDERED: *HR* Heparin 5,000 UNIT/ML VIAL SQ SCH (18:00)
[2018-02-17] MEDS: *HR* Heparin 5,000 UNIT/ML VIAL SQ SCH (19:02)
[2018-02-18] MEDS: *HR* Heparin 5,000 UNIT/ML VIAL SQ SCH ×2 (06:08→17:31)
[2018-02-18] MEDS: Metoprolol XL (24 HR) Succ 25 MG TAB.ER.24H PO SCH (09:14)
[2018-02-18] MEDS: Aspirin 81 MG TAB.CHEW PO SCH (09:15)
[2018-02-18] MEDS: *HR* Ticagrelor 90 MG TABLET PO SCH ×2 (09:15→20:47)
[2018-02-18] MEDS: Acetaminophen 325 MG TABLET PO PRN (09:19)
--- NOTE | 2018-02-18 11:03 | Cardiology Progress Note ---
Date of Encounter: 02/18/18 Time of Encounter: 10:59 Assessment and Plan (1) ST elevation myocardial infarction (STEMI) Current Visit: Yes Status: Acute Presented as inferior STEMI, received 45 minutes of CPR prior to arrival, underwent emergent LHC with MARTÍN to mRCA and PTCA to pRCA. Mild confusion noted, likely secondary to cardiac arrest, improved today. Reports chest soreness, reproducible on palpation likely secondary to compressions during CPR. DAPT (ASA and Brilinta) uninterrupted x 1 year. BB and Statin started. TTE resulted--LVEF 40-45%. Global and regional LV systolic dysfunction with hypokinesis of the basal-mid inferior wall. Indeterminate diastolic function. Normal right ventricular structure and function. Mild mitral regurgitation. No pulmonary hypertension. Start low dose ACEi. Right femoral access site healing well. No bleeding, hematoma or ecchymosis noted. If pt remains stable overnight, tentative d/c home tomorrow. Qualifiers: Involved coronary artery: right coronary artery Qualified Code(s): I21.11 - ST elevation (STEMI) myocardial infarction involving right coronary artery (2) NSVT (nonsustained ventricular tachycardia) Current Visit: Yes Status: Acute Now resolved. No recurrence since adding low dose BB. Continue to monitor. (3) Confusion Current Visit: Yes Status: Acute Confusion noted, likely secondary to cardiac arrest. Has improved. Will continue to monitor. Discussion w patient/family: The assessment and plan as outlined above was discussed with the patient and/or family members who expressed understanding and agreement. All questions were answered. Thank you for involving us in the care of your patient. Please call with any questions. I will discuss all the above with Dr. Rudolph and make changes as necessary. Subjective Principal diagnosis: STEMI Interval history: S/P inferior STEMI and s/p Sudden cardiac with out of hospital resuscitation CPR x 45 mins prior to arrival. Emergent LHC 02/16/18 MARTÍN to mRCA and PTCA to pRCA. Confusion has improved. Reports chest soreness s/p compressions. TTE resulted--LVEF 40-45%. Global and regional LV systolic dysfunction with hypokinesis of the basal-mid inferior wall. Indeterminate diastolic function. Normal right ventricular structure and function. Mild mitral regurgitation. No pulmonary hypertension. Objective Vital Signs, Last 4 Hours Temp Pulse Resp BP Pulse Ox 05/02/18 09:55 98.4 F 76 17 132/83 96 02/18/18 09:00 76 20 125/78 02/18/18 08:00 77 12 127/91 02/18/18 07:00 98.1 F 67 14 126/87 95 Vital Signs Temp Pulse Resp BP Pulse Ox 02/18/18 09:55 98.4 F 76 17 132/83 96 02/18/18 09:00 76 20 125/78 02/18/18 08:00 77 12 127/91 02/18/18 07:00 98.1 F 67 14 126/87 95 02/18/18 06:00 72 18 118/75 92 02/18/18 05:00 73 18 125/86 94 02/18/18 04:18 72 02/18/18 04:00 75 17 108/63 92 02/18/18 03:41 98.4 F 02/18/18 03:00 73 18 116/76 93 02/18/18 02:00 70 14 107/71 92 02/18/18 01:00 81 14 128/80 92 02/18/18 00:42 76 02/18/18 00:10 98.4 F 02/18/18 00:00 72 13 122/80 92 02/17/18 23:00 75 11 120/79 92 02/17/18 22:00 70 12 115/80 97 02/17/18 21:00 72 20 123/76 96 02/17/18 20:00 98.1 F 74 21 116/104 96 02/17/18 19:57 71 02/17/18 19:00 72 21 114/76 95 02/17/18 18:30 72 20 109/70 95 02/17/18 17:27 73 19 125/80 95 02/17/18 16:30 67 19 104/70 96 02/17/18 15:30 66 19 109/67 96 02/17/18 14:30 69 20 110/71 96 02/17/18 13:30 75 19 115/75 95 02/17/18 12:30 78 18 118/76 95 02/17/18 11:50 98.7 F Intake and Output 02/17/18 02/18/18 02/18/18 23:59 07:59 15:59 Intake Total 720 / 720 240 / 240 Output Total 675 / 675 325 / 325 Balance 45 / 45 -325 / -325 240 / 240 Intake: Oral 360 / 360 240 / 240 Tube Feeding 360 / 360 Output: Urine 675 / 675 325 / 325 Other: Meal Dinner Breakfast Percent of Meal Consumed 75% 90% Weight 84.6 kg 80.2 kg Patient Weight 02/18/18 23:59 Weight 80.2 kg General: Conversant, No Apparent Distress HEENT: Atraumatic, Normocephaly, Mucus Membranes Moist Neck: No JVD, Normal carotid pulses Cardiac: Reg Rate and Rhythm, Normal S1 and S2, No Murmur Lungs: Normal Breath Sounds, No Wheeze, Rales, Rhonchi Neuro: Alert and responsive, No focal deficits noted Abdomen: Soft, Non-Tender Skin: No rashes noted on visualized skin Musculoskeletal: No Chest Wall Tenderness Extremities: No Clubbing, No Cyanosis, No Edema, Normal Pulses Results 02/17/18 02:59 02/17/18 02:59 Impressions Echocardiogram 02/17/18 20:24 Impressions: LVEF 40-45%. Global and regional LV systolic dysfunction with hypokinesis of the basal-mid inferior wall. Indeterminate diastolic function. Normal right ventricular structure and function. Mild mitral regurgitation. No pulmonary hypertension. Left Ventricular Wall Motion: Rest Echo Findings The apex, apical inferior, mid inferior, basal inferior, apical anterior, mid anterior, basal anterior, apical septal, mid inferior septal, basal inferior septal, apical lateral, mid anterior lateral, basal anterior lateral, mid anterior septal, mid inferior lateral, basal anterior septal and basal inferior lateral jackson were hypokinetic. Findings: Study Quality * Technically adequate exam. ECG Findings * Normal sinus rhythm. Left Ventricle * Indeterminate diastolic function. * Normal LV chamber size and wall thickness. * LVEF 40-45%. Right Ventricle * Normal right ventricular structure and function. Left Atrium * Normal left atrial size. Right Atrium * Normal right atrial size. Mitral Valve * Normal mitral valve structure. * No mitral stenosis. * Mild mitral regurgitation. Aortic Valve * No aortic regurgitation. * Aortic valve not well visualized. * No aortic stenosis. Tricuspid Valve * Tricuspid valve not well visualized. * Trace tricuspid regurgitation. * Estimated RA pressure is 3 mmHg. Pulmonic Valve * Pulmonic valve is not well visualized. * No pulmonic stenosis. * No pulmonic regurgitation. Pulmonary Artery * Pulmonary artery not well visualized. Aorta * Normally sized aortic root. Pericardium * There is no pericardial effusion present. Interatrial Septum * No evidence of PFO by color Doppler. IVC * Normal IVC dimensions and inspiratory collapse. Active Medications Acetaminophen (Tylenol) 650 mg PO Q4HR PRN PRN Reason: Analgesia Stop: 08/19/18 10:28 Last Admin: 02/18/18 09:19 Dose: 650 mg Lipase/Protease/Amylase (Creon Dr 6,000 Units Capsule) 12 each PO QPM JESUS Stop: 08/19/18 18:01 Aspirin (Aspirin) 81 mg PO DAILY JESUS Stop: 08/19/18 09:01 Last Admin: 02/18/18 09:15 Dose: 81 mg Atorvastatin Calcium (Lipitor) 40 mg PO HS JESUS Stop: 08/19/18 21:01 Last Admin: 02/17/18 20:28 Dose: 40 mg Heparin Sodium (Porcine) (Heparin) 5,000 unit SQ Q12HCO JESUS Stop: 08/19/18 18:01 Last Admin: 02/18/18 06:08 Dose: 5,000 unit Metoprolol Succinate (Toprol Xl) 12.5 mg PO DAILY JESUS Stop: 08/19/18 10:46 Last Admin: 02/18/18 09:14 Dose: 12.5 mg Ticagrelor (Brilinta) 90 mg PO BID JESUS Stop: 08/18/18 21:01 Last Admin: 02/18/18 09:15 Dose: 90 mg - Imaging and Cardiology Echo: report reviewed Cardiac cath: report reviewed - EKG Interpretation EKG results cardiology: other (12 hr tele AVG HR 72, SR, no NSVT noted overnight ) - VTE Reasons for not Prescribing Prophylaxis: Not indicated-Anticoagulated or INR therapeutic Consult Discharge Plan - Plan Referrals: Rudy Huerta [Other] - 03/02/18 2:30 pm (This is new location)
[2018-02-18 12:06] LABS: Basophils # 0.1 K/mcL (0.0-0.2); Basophils % 0.6 %; Eosinophils # 0.2 K/mcL (0.0-0.6); Eosinophils % 1.9 %; Hematocrit 43.8 % (37.5-50.1); Hemoglobin 15.3 g/dL (12.9-16.9); Immature Granulocytes % 0.3 % (0-4); Lymphocytes # 3.8 K/mcL (0.6-4.6); Lymphocytes % 33.9 %; Mean Corpuscular HGB Conc 34.9 g/dL (31.6-35.5); Mean Corpuscular Hemoglobin 31.1 pg (28.0-33.3); Mean Platelet Volume 11.4 fL (9.4-12.4); Monocytes # 1.2 K/mcL (0.0-1.3); Monocytes % 10.5 %; Neutrophils # 5.9 K/mcL (1.6-8.9); Platelet Count 128 K/mcL (140-400); Red Blood Count 4.92 M/mcL (4.19-5.50); Red Cell Distribution Width 13.6 % (11.5-14.5); Segmented Neutrophils % 52.8 %
[2018-02-18 12:53] LABS: BUN/Creatinine Ratio 18 (6-26); Blood Urea Nitrogen 15 mg/dL (6-20); Calcium 9.3 mg/dL (8.6-10.3); Carbon Dioxide 22 mEq/L (23-29); Chloride 108 mEq/L (98-107); Glucose 92 mg/dL (70-105); Osmolality,Calculated 286 (280-300); Potassium 3.9 mEq/L (3.5-5.1); Sodium 138 mEq/L (136-145); eGFR For African Americans > 60 (> 60); eGFR For Non-African Americans > 60 (> 60)
[2018-02-19 05:03] LABS: Basophils # 0.1 K/mcL (0.0-0.2); Basophils % 0.9 %; Eosinophils # 0.3 K/mcL (0.0-0.6); Eosinophils % 3.3 %; Hematocrit 42.1 % (37.5-50.1); Hemoglobin 14.8 g/dL (12.9-16.9); Immature Granulocytes % 0.4 % (0-4); Lymphocytes # 3.5 K/mcL (0.6-4.6); Lymphocytes % 35.2 %; Mean Corpuscular HGB Conc 35.2 g/dL (31.6-35.5); Mean Corpuscular Hemoglobin 30.8 pg (28.0-33.3); Mean Corpuscular Volume 87.5 fL (83.0-100.0); Mean Platelet Volume 11.5 fL (9.4-12.4); Monocytes % 9.5 %; Platelet Count 131 K/mcL (140-400); Red Blood Count 4.81 M/mcL (4.19-5.50); Red Cell Distribution Width 13.4 % (11.5-14.5); Segmented Neutrophils % 50.7 %
[2018-02-19 05:29] LABS: BUN/Creatinine Ratio 15 (6-26); Blood Urea Nitrogen 12 mg/dL (6-20); Calcium 9.1 mg/dL (8.6-10.3); Carbon Dioxide 20 mEq/L (23-29); Chloride 109 mEq/L (98-107); Glucose 99 mg/dL (70-105); Osmolality,Calculated 284 (280-300); Potassium 3.9 mEq/L (3.5-5.1); Sodium 137 mEq/L (136-145); eGFR For African Americans > 60 (> 60); eGFR For Non-African Americans > 60 (> 60)
[2018-02-19] MEDS: *HR* Heparin 5,000 UNIT/ML VIAL SQ SCH ×2 (06:10→18:10)
[2018-02-19] MEDS: Metoprolol XL (24 HR) Succ 25 MG TAB.ER.24H PO SCH (07:45)
[2018-02-19] MEDS: Aspirin 81 MG TAB.CHEW PO SCH (07:45)
[2018-02-19] MEDS: *HR* Ticagrelor 90 MG TABLET PO SCH ×2 (07:46→21:21)
[2018-02-19] MEDS: Acetaminophen 325 MG TABLET PO PRN ×2 (07:46→19:40)
[2018-02-19] MEDS ORDERED: Metoprolol XL (24 HR) Succ 25 MG TAB.ER.24H PO ONE (08:52)
--- NOTE | 2018-02-19 10:43 | Cardiology Progress Note ---
Date of Encounter: 02/19/18 Time of Encounter: 10:40 Assessment and Plan (1) ST elevation myocardial infarction (STEMI) Current Visit: Yes Status: Acute Presented as inferior STEMI, received 45 minutes of CPR prior to arrival, underwent emergent LHC with MARTÍN to mRCA and PTCA to pRCA. Burn area noted on chest from CPR/defibrillation. Order Silvadene. Reports chest soreness, reproducible on palpation likely secondary to compressions during CPR. DAPT (ASA and Brilinta) uninterrupted x 1 year. Continue BB, Statin, ACEi. TTE resulted--LVEF 40-45%. Global and regional LV systolic dysfunction with hypokinesis of the basal-mid inferior wall. Mild MR. Pt reports hemoptysis--will order CXR. Reports a sensation in his chest last night, not pain, but described as similar sensation prior to his arrest. No events or arrhythmias no tele. Reviewed [facility] report. There is a 80% stenosis in the proximal 1st Diagonal and a 90% stenosis in the Mid Circumflex not intervented on. Will review with interventionalist to see if these lesions need intervened on. Keep another night for further monitoring given new complaints. Qualifiers: Involved coronary artery: right coronary artery Qualified Code(s): I21.11 - ST elevation (STEMI) myocardial infarction involving right coronary artery (2) NSVT (nonsustained ventricular tachycardia) Current Visit: Yes Status: Acute Now resolved. No recurrence since adding low dose BB. Continue to monitor. (3) Confusion Current Visit: Yes Status: Acute Confusion noted, likely secondary to cardiac arrest. Has improved. Will continue to monitor. (4) Hemoptysis Current Visit: Yes Status: Acute Reports cough with hemoptysis, new. Order STAT CXR. On DAPT (ASA and Brilinta). H&H are stable. Lungs clear on exam. (5) Ischemic cardiomyopathy Current Visit: Yes Status: Acute EF 40-45% with global and regional wall motion abnormalities, s/p inferior STEMI. Continue BB and ACEi. Appears euvolemic on exam. Discussed 2L fluid restriction, Na restriction, daily weights. Discussion w patient/family: The assessment and plan as outlined above was discussed with the patient and/or family members who expressed understanding and agreement. All questions were answered. Thank you for involving us in the care of your patient. Please call with any questions. I will discuss all the above with Dr. House and make changes as necessary. Subjective Principal diagnosis: STEMI Interval history: S/P inferior STEMI and s/p Sudden cardiac with out of hospital resuscitation CPR x 45 mins prior to arrival. Emergent LHC 02/16/18 MARTÍN to mRCA and PTCA to pRCA. Confusion has improved. Reports chest soreness s/p compressions. This AM pt reports cough and hemoptysis. Reports sensation in his chest last night similar to prior his cardiac arrest. Objective Vital Signs, Last 4 Hours Temp Pulse Resp BP Pulse Ox 02/19/18 07:47 98.0 F 75 20 115/70 91 Vital Signs Temp Pulse Resp BP Pulse Ox 02/19/18 07:47 98.0 F 75 20 115/70 91 02/19/18 03:58 98.3 F 68 18 120/71 94 02/18/18 22:56 98.6 F 67 20 119/76 94 02/18/18 19:24 98.4 F 73 20 126/81 95 02/18/18 11:45 98.1 F 69 20 126/90 96 Intake and Output 02/18/18 02/19/18 02/19/18 23:59 07:59 15:59 Intake Total 120 / 120 480 / 480 Output Total 650 / 650 950 / 950 Balance -530 / -530 -950 / -950 480 / 480 Intake: Oral 120 / 120 480 / 480 Output: Urine 650 / 650 950 / 950 Other: Meal Dinner Breakfast Percent of Meal Consumed 20% 100% Weight 82.4 kg Patient Weight 02/19/18 23:59 Weight 82.4 kg General: Conversant, No Apparent Distress HEENT: Atraumatic, Normocephaly, Mucus Membranes Moist Neck: No JVD, Normal carotid pulses Cardiac: Reg Rate and Rhythm, Normal S1 and S2, No Murmur Lungs: Normal Breath Sounds, No Wheeze, Rales, Rhonchi Neuro: Alert and responsive, No focal deficits noted Abdomen: Soft, Non-Tender Skin: No rashes noted on visualized skin Musculoskeletal: Other (chest wall tenderness) Extremities: No Clubbing, No Cyanosis, No Edema, Normal Pulses Results 02/19/18 04:51 02/19/18 04:51 Lab Results 02/18/18 02/18/18 02/19/18 11:55 11:55 04:51 WBC 11.1 10.0 Hgb 15.3 14.8 Hct 43.8 42.1 Plt Count 128 L 131 L Sodium 138 Potassium 3.9 Chloride 108 H Carbon Dioxide 22 L BUN 15 Creatinine 0.85 Glucose 92 Calcium 9.3 02/19/18 04:51 WBC Hgb Hct Plt Count Sodium 137 Potassium 3.9 Chloride 109 H Carbon Dioxide 20 L BUN 12 Creatinine 0.79 Glucose 99 Calcium 9.1 Short CBC 02/19/18 02/18/18 Range/Units 04:51 11:55 WBC 10.0 11.1 (4.3-11.1) K/mcL Hgb 14.8 15.3 (12.9-16.9) g/dL Hct 42.1 43.8 (37.5-50.1) % Plt Count 131 L 128 L (140-400) K/mcL Neutrophils # 5.0 5.9 (1.6-8.9) K/mcL BMP 02/19/18 02/18/18 Range/Units 04:51 11:55 Sodium 137 138 (136-145) mEq/L Potassium 3.9 3.9 (3.5-5.1) mEq/L Chloride 109 H 108 H (98-107) mEq/L Carbon Dioxide 20 L 22 L (23-29) mEq/L BUN 12 15 (6-20) mg/dL Creatinine 0.79 0.85 (0.70-1.30) mg/dL Glucose 99 92 (70-105) mg/dL Calcium 9.1 9.3 (8.6-10.3) mg/dL Active Medications Acetaminophen (Tylenol) 650 mg PO Q4HR PRN PRN Reason: Analgesia Stop: 08/19/18 10:28 Last Admin: 02/19/18 07:46 Dose: 650 mg Lipase/Protease/Amylase (Creon Dr 6,000 Units Capsule) 12 each PO QPM JESUS Stop: 08/19/18 18:01 Aspirin (Aspirin) 81 mg PO DAILY JESUS Stop: 08/19/18 09:01 Last Admin: 02/19/18 07:45 Dose: 81 mg Atorvastatin Calcium (Lipitor) 40 mg PO HS JESUS Stop: 08/19/18 21:01 Last Admin: 02/18/18 20:47 Dose: 40 mg Heparin Sodium (Porcine) (Heparin) 5,000 unit SQ Q12HCO JESUS Stop: 08/19/18 18:01 Last Admin: 02/19/18 06:10 Dose: 5,000 unit Lisinopril (Zestril) 2.5 mg PO DAILY [facility] PRN Reason: Protocol Stop: 08/20/18 11:16 Last Admin: 02/19/18 07:46 Dose: 2.5 mg Metoprolol Succinate (Toprol Xl) 25 mg PO DAILY [facility] Stop: 08/22/18 09:01 Ticagrelor (Brilinta) 90 mg PO BID [facility] Stop: 08/18/18 21:01 Last Admin: 02/19/18 07:46 Dose: 90 mg - Imaging and Cardiology Echo: report reviewed Cardiac cath: report reviewed - EKG Interpretation EKG results cardiology: other (12 hr tele AVG HR 69, no significant pauses or arrhythmias noted.) - VTE Reasons for not Prescribing Prophylaxis: Not indicated-Anticoagulated or INR therapeutic Consult Discharge Plan - Plan Referrals: Rudy Huerta [Other] - 03/02/18 2:30 pm (This is new location)
[2018-02-19] MEDS: Silver Sulfadiazine 50 GM TUBE TP SCH (14:50)
[2018-02-20] MEDS: Acetaminophen 325 MG TABLET PO PRN (03:47)
[2018-02-20] MEDS: *HR* Heparin 5,000 UNIT/ML VIAL SQ SCH (05:35)
[2018-02-20] MEDS: *HR* Ticagrelor 90 MG TABLET PO SCH (07:51)
[2018-02-20] MEDS: Silver Sulfadiazine 50 GM TUBE TP SCH (07:52)
[2018-02-20] MEDS: Aspirin 81 MG TAB.CHEW PO SCH (07:52)
[2018-02-20 08:26] LABS: Basophils # 0.1 K/mcL (0.0-0.2); Eosinophils # 0.3 K/mcL (0.0-0.6); Eosinophils % 3.9 %; Hemoglobin 15.2 g/dL (12.9-16.9); Immature Granulocytes % 0.7 % (0-4); Lymphocytes # 2.8 K/mcL (0.6-4.6); Lymphocytes % 34.3 %; Mean Corpuscular HGB Conc 35.3 g/dL (31.6-35.5); Mean Corpuscular Volume 87.8 fL (83.0-100.0); Mean Platelet Volume 11.5 fL (9.4-12.4); Monocytes # 0.7 K/mcL (0.0-1.3); Monocytes % 8.7 %; Neutrophils # 4.2 K/mcL (1.6-8.9); Platelet Count 156 K/mcL (140-400); Red Cell Distribution Width 13.2 % (11.5-14.5); Segmented Neutrophils % 51.4 %
[2018-02-20 08:52] LABS: BUN/Creatinine Ratio 16 (6-26); Blood Urea Nitrogen 13 mg/dL (6-20); Calcium 9.4 mg/dL (8.6-10.3); Carbon Dioxide 22 mEq/L (23-29); Chloride 107 mEq/L (98-107); Glucose 95 mg/dL (70-105); Osmolality,Calculated 282 (280-300); Potassium 3.8 mEq/L (3.5-5.1); Sodium 136 mEq/L (136-145); eGFR For African Americans > 60 (> 60); eGFR For Non-African Americans > 60 (> 60)
[2018-02-20] MEDS ORDERED: Metoprolol XL (24 HR) Succ 25 MG TAB.ER.24H PO SCH (09:00)
[2018-02-20] MEDS ORDERED: Isosorbide MONOnitrate (24 HR) 30 MG TAB.ER.24H PO SCH (09:45)
[2018-02-20 12:39] VITALS: BP 108/66
--- NOTE | 2018-02-20 13:26 | Discharge Summary ---
Orders not resulted at time of discharge: Pending orders 02/17/18 07:00 ECG 12 lead ECG [ECG] Routine Date of Encounter: 02/20/18 Time of Encounter: 13:22 - Discharge Diagnosis (1) ST elevation myocardial infarction (STEMI) Priority: Primary Status: Acute Qualifiers: Involved coronary artery: right coronary artery Qualified Code(s): I21.11 - ST elevation (STEMI) myocardial infarction involving right coronary artery (2) NSVT (nonsustained ventricular tachycardia) Priority: Secondary Status: Acute (3) Confusion Priority: Secondary Status: Acute (4) Hemoptysis Priority: Secondary Status: Acute (5) Ischemic cardiomyopathy Priority: Secondary Status: Acute - Hospital Course Hospital course: Mr. Carpio is a 58 year old male presented as inferior STEMI on 02/06/18, received 45 minutes of CPR prior to arrival, underwent emergent LHC with MARTÍN to mRCA and PTCA to pRCA. Reports chest soreness, reproducible on palpation likely secondary to compressions during CPR. DAPT (ASA and Brilinta) uninterrupted x 1 year. Continue BB, Statin, ACEi. TTE LVEF 40-45%. Global and regional LV systolic dysfunction with hypokinesis of the basal-mid inferior wall. Mild MR. Euvolemic on exam. CHF teaching discussed. Pt reports mild blood tinged sputum, suspect secondary to trauma from CPR. CXR without significant findings and H&H stable. Reports intermittent sensation in his chest, not pain, but described as similar sensation prior to his arrest. No events or arrhythmias no tele. Reviewed [facility] report with Dr. Garcia. There is a 80% stenosis in the proximal 1st Diagonal and a 90% stenosis in the Mid Circumflex not intervented on. Interventionalist stated these were small vessel, does not need staged at this time. The first night after his arrest pt had frequent NSVT, now resolved. No recurrence since adding low dose BB. Confusion noted, likely secondary to cardiac arrest. Has improved. Attempted to add Imdur, but pt developed blurred vision and hypotension, quickly resolved. D/C home in stable condition. Restrictions discussed. Follow-up as outpt in 1 week. Time spent discussing smoking cessation with patient: 3 to 10 minutes - Time Spent with Patient Total time spent providing and/or coordinating discharge services: Greater than 30 minutes - Discharge Medications Prescriptions: Aspirin 81 mg PO DAILY #30 tab.chew Atorvastatin [Lipitor] 40 mg PO HS #30 tablet Lisinopril [Zestril] 2.5 mg PO DAILY #30 tablet Metoprolol XL (24 HR) Succ [Toprol Xl] 25 mg PO DAILY #30 tab.er.24h Ticagrelor [Brilinta] 90 mg PO BID #60 tablet Home Medications: Lipase/Protease/Amylase [Angelito Worthington 36,000 Units Capsule] 2 cap PO QPM 02/17/18 [ History] Aspirin 81 mg PO DAILY #30 tab.chew 02/20/18 [Rx] Atorvastatin [Lipitor] 40 mg PO HS #30 tablet 02/20/18 [Rx] Lisinopril [Zestril] 2.5 mg PO DAILY #30 tablet 02/20/18 [Rx] Metoprolol XL (24 HR) Succ [Toprol Xl] 25 mg PO DAILY #30 tab.er.24h 02/20/18 [ Rx] Silver Sulfadiazine [Silvadene] 1 appl TP DAILY tube 02/20/18 [Rx] Ticagrelor [Brilinta] 90 mg PO BID #60 tablet 02/20/18 [Rx] Allergies/Adverse Reactions: 3 Allergy/AdvReac Type Severity Reaction Status Date / Time No Known Allergies Allergy Verified 02/17/18 10:45 Date of admission: 02/16/18 18:22 Primary care physician: rudy Huerta Consults: 02/16/18 20:24 Consult to Cardiac Rehabilitation-Phase1 [CONS] Routine Comment: Reason for Consult: AMI Call Completed: Yes Consult to Nurse Navigator [CONS] Routine Comment: Discharging clinician: Kyrie Martinez Anticipated date of discharge: 02/20/18 Physical Examination Vital Signs, Last 4 Hours Temp Pulse Resp BP Pulse Ox 02/20/18 12:37 64 16 108/66 94 02/20/18 11:10 97.7 F 61 19 98/75 90 Vital Signs Temp Pulse Resp BP Pulse Ox 02/20/18 12:37 64 16 108/66 94 02/20/18 11:10 97.7 F 61 19 98/75 90 02/20/18 08:06 98.0 F 66 16 127/70 95 02/20/18 02:42 98.2 F 64 14 111/71 95 02/19/18 22:55 98.3 F 61 14 103/67 93 02/19/18 21:20 67 02/19/18 19:12 98.5 F 69 14 113/71 94 02/19/18 16:17 98.3 F 65 14 115/75 95 Intake and Output 02/19/18 02/20/18 02/20/18 23:59 07:59 15:59 Intake Total 240 / 240 Output Total 600 / 600 1300 / 1300 Balance -600 / -600 -1300 / -1300 240 / 240 Intake: Oral 240 / 240 Output: Urine 600 / 600 1300 / 1300 Other: Meal Dinner Breakfast Percent of Meal Consumed 90% 100% # Bowel Movements 1 General: Conversant, No Apparent Distress HEENT: Atraumatic, Normocephaly, Mucus Membranes Moist Neck: No JVD, Normal carotid pulses Cardiac: Reg Rate and Rhythm, Normal S1 and S2, No Murmur Lungs: Normal Breath Sounds, No Wheeze, Rales, Rhonchi Neuro: Alert and responsive, No focal deficits noted Abdomen: Soft, Non-Tender Skin: No rashes noted on visualized skin Musculoskeletal: No Chest Wall Tenderness Extremities: No Clubbing, No Cyanosis, No Edema, Normal Pulses - Patient Status Disposition: Home, Self-Care Condition: Fair Functional capacity at discharge: independent ambulation Overall status at discharge: patient is progressing back to baseline - Discharge Instructions Follow Up With: Rudy Huerta [Other] - 03/02/18 2:30 pm (This is new location) Steve Rudolph DO [Partnered Physician] - (OFFICE WILL CALL PATIENT AT HOME WITH FOLLOW UP APPOINTMENT) Additional Instructions: RISK FACTORS: STOP SMOKING: If you smoke, STOP. Smoking or tobacco use significantly increases your risk of heart disease because nicotine causes the arteries to narrow or constrict. It also causes fats to stick to the artery. Your chances of having a heart attack are greatly increased if you continue to smoke. For more information, call the education line for smoking cessation 7-195-IODRQQJ EAT A LOW FAT/CHOLESTEROL/SODIUM DIET: This diet may help reduce your chances of having a heart attack. LIFTING: Avoid lifting anything more than 10 pounds for 5-7 days Prior to straining, laughing, sneezing and/or coughing, apply manual pressure directly over insertion site. ACTIVITY: You may walk or climb stairs as tolerated You can resume sexual activity as tolerated In general, you are encouraged to engage in a minimum of 30 minutes or more of moderate intensity physical activity, such as brisk walking, daily or at least 3 -4 times weekly BATHING Do not submerge the site into water (bath tub, hot tub, swimming pool) for 1 week. This can be a source for infection into the blood stream. You may shower after 24 hours SITE CARE: After 24 hours, you may remove the dressing and leave the site open to air. Keep the site clean and dry. Clean gently and pat dry. You can expect bruising and tenderness that gradually resolve within a week or two. Return to work as instructed per your physician Resume driving as instructed per physician Keep all scheduled follow up appointments Resume medications as instructed IMPORTANT: If prescribed a Platelet Aggregation Inhibitor such as, Plavix, Brilinta or Effient: Duration of therapy is minimum one year These medications are often used in combination with Aspirin in prevention of future heart attacks Never discontinue unless consult with your [employer] Technician STROKE (CVA) Risk factors for a stroke are: Age, cigarette smoking, diabetes, excessive alcohol consumption, family history, high blood pressure, overweight, physical inactivity, prior stroke, heart attack, diagnosis of carotid artery stenosis or other artery disease. Warning signs: Sudden numbness or weakness of the face, arm or leg; especially on one side of the body, sudden confusion, trouble speaking or understanding, sudden trouble seeing in one or both eyes, sudden trouble walking, dizziness, loss of balance or coordination, sudden severe headache with no cause. Call 911 or go to the Emergency Room. CONGESTIVE HEART FAILURE: If you have been diagnosed with Congestive Heart Failure (CHF) and your symptoms return, make an appointment with your physician Weigh yourself daily. Notify your physician if you have a weight gain of two or more pounds in one day or five or more pounds in one week. If you experience any difficulty breathing, please call 911 BLEEDING: Although the risk of bleeding is minimal, it can happen. If you have any bleeding from the site, apply firm pressure above the puncture site for 10-15 minutes. If the bleeding does not stop, continue manual pressure and call 911 Contact your physician if: You develop a fever greater than 101 degrees Fahrenheit Your site becomes reddened or has any drainage You have an increase in pain or burning at the site or if a large knot forms at the site. If you experience chest pain, shortness of breath, dizziness, or extreme tiredness, stop the activity and rest. Please notify your physicians office if you experience any of these symptoms and they are not relieved by rest please call 911! - Diet and Activity Activity: increase activity as tolerated Diet: low fat, low cholesterol, low salt diet - VTE Reasons for not Prescribing Prophylaxis: Not indicated-Anticoagulated or INR therapeutic
== END 2018-02-20 15:28 | disposition home or self-care (01) | DRG 246 ==
LOC: EMEROO 17:20 → ICNU 17:52 → 2NNU 02-18 10:10
PROVIDERS: ADMIT Hospitalist; ATTEND Hospitalist